=== PATIENT | female | born 1970 | race Caucasian/White ===

== ENCOUNTER 2016-07-25 22:27 | Emergency (ER) | payer SELFPAY ==
[~2016-07-25] VITALS: Ht 162.6 cm; Wt 100.0 kg
[~2016-07-25 22:27] MED LIST: GABA300 PO; LITH300C2 PO; SERO200T PO; TRAZ100 PO; WELL150T PO
[2016-07-25 23:00] VITALS: BP 124/86; PULSE 80; RESP 16; TEMP 98.7; O2SAT 100
[2016-07-25] MEDS ORDERED: SODIUM CHLORIDE 0.9% FLUSH 5 ML FLUSH IVF PRN (23:15)
[2016-07-25] MEDS ORDERED: ASPIRIN 81 MG CHEW TAB PO ONE (23:15)
--- NOTE | 2016-07-25 23:16 | PD ---
HPI Chief Complaint: Quintero act, Dizziness. Time Seen by Provider: 23:01 Travel History International Travel<30 days: No Contact w/Intl Traveler<30days: No Traveled to known affect area: No History of Present Illness HPI Patient is a 46 year old female presenting with dizziness and headache. Significant past medical history includes bipolar, depression, and PTSD. She states that she has been feeling very depressed again and having thoughts about killing herself by slicing her wrists. She has been quintero acted by chief digital media officer for for suicidal ideations but denies making any attempt, although admits to ingesting cocaine 3 hours ago. She denies chest pain, or shortness of breath at the moment but states that she experiences shortness of breath and chest tightness with physical exertion. Patient denies any visual changes, slurred speech, or neurological symptoms. She currently takes lithium, trazodone , and gabapentin, all prescribes to her by her psychiatrist at [facility] , and reports being compliant with her medications. History Past Medical History : 6 Para: 4 Social History Alcohol Use: No Tobacco Use: Yes (/2 PPD) Allergies-Medications (Allergen,Severity, Reaction): Coded Allergies: Penicillin (Verified Allergy, Severe, Nausea/Vomiting, 05/11/16) Reported Meds & Prescriptions Reported Meds & Active Scripts Active Reported Wellbutrin SR 12 HR (Bupropion HCl) 150 Mg Tab 150 Mg PO Q12HR Trazodone (Trazodone HCl) 100 Mg Tab 100 Mg PO HS Seroquel XR (Quetiapine Fumarate) 200 Mg Tab 200 Mg PO DAILY Gabapentin 600 Mg Tab 600 Mg PO BID [place] Carbonate 300 Mg Tab 300 Mg PO TID Review of Systems Except as stated in HPI: all other systems reviewed are Neg Physical Exam Narrative GENERAL: wellgroomed, well developed but obese female, appears anxious SKIN: Warm and dry. HEAD: Atraumatic. Normocephalic. EYES: Pupils equal and round. No scleral icterus. No injection or drainage. ENT: No nasal bleeding or discharge. Mucous membranes pink and moist. NECK: Trachea midline. No JVD. CARDIOVASCULAR: Regular rate and rhythm. RESPIRATORY: No accessory muscle use. Clear to auscultation. Breath sounds equal bilaterally. GASTROINTESTINAL: Abdomen soft, non-tender, nondistended. Hepatic and splenic margins not palpable. MUSCULOSKELETAL: Extremities without clubbing, cyanosis, or edema. No obvious deformities. NEUROLOGICAL: Awake and alert. No obvious cranial nerve deficits. Motor grossly within normal limits. Five out of 5 muscle strength in the arms and legs. Normal speech. PSYCHIATRIC: Appropriate mood and affect; insight and judgment normal. Endorses SI with planning. Data Data Last Documented VS Vital Signs Date Time Temp Pulse Resp B/P Pulse Ox O2 Delivery O2 Flow Rate FiO2 07/26/16 01:52 85 18 110/72 97 Room Air 07/25/16 23:00 98.7 Orders Electrocardiogram (07/25/16 23:02) Basic Metabolic Panel (Bmp) (07/25/16 23:02) Ckmb (Isoenzyme) Profile (07/25/16 23:02) Complete Blood Count With Diff (07/25/16 23:02) Magnesium (Mg) (07/25/16 23:02) Prothrombin Time / Inr (Pt) (07/25/16 23:02) [place] Partial Throm Time (Ptt) (07/25/16 23:02) Troponin I (07/25/16 23:02) Chest, Single Ap (07/25/16 23:02) Ecg Monitoring (07/25/16 23:02) Bilateral Bp Monitoring (07/25/16 23:02) Iv Access Insert/Monitor (07/25/16 23:02) Oximetry (07/25/16 23:02) Oxygen Administration (07/25/16 23:02) Aspirin Chew (Aspirin Chew) (07/25/16 23:15) Sodium Chloride 0.9% Flush (Ns Flush) (07/25/16 23:15) Drug Screen, Random Urine (07/25/16 23:02) Alcohol (Ethanol) (07/25/16 23:02) Psych Screen (07/25/16 23:02) [place] (Li) (07/25/16 23:05) Lorazepam Inj (Ativan Inj) (07/26/16 00:15) Labs Laboratory Tests Test 07/25/16 23:00 White Blood Count 10.7 TH/MM3 Red Blood Count 4.85 MIL/MM3 Hemoglobin 14.0 GM/DL Hematocrit 40.9 % Mean Corpuscular Volume 84.3 FL Mean Corpuscular Hemoglobin 28.8 PG Mean Corpuscular Hemoglobin 34.1 % Concent Red Cell Distribution Width 13.1 % Platelet Count 211 TH/MM3 Mean Platelet Volume 8.8 FL Neutrophils (%) (Auto) 73.0 % Lymphocytes (%) (Auto) 19.7 % Monocytes (%) (Auto) 4.2 % Eosinophils (%) (Auto) 2.7 % Basophils (%) (Auto) 0.4 % Neutrophils # (Auto) 7.8 TH/MM3 Lymphocytes # (Auto) 2.1 TH/MM3 Monocytes # (Auto) 0.4 TH/MM3 Eosinophils # (Auto) 0.3 TH/MM3 Basophils # (Auto) 0.0 TH/MM3 CBC Comment DIFF FINAL Differential Comment Prothrombin Time 10.6 SEC Prothromb Time International 1.0 RATIO Ratio Activated Partial 24.9 SEC Thromboplast Time Sodium Level 140 MEQ/L Potassium Level 3.5 MEQ/L Chloride Level 103 MEQ/L Carbon Dioxide Level 28.8 MEQ/L Anion Gap 8 MEQ/L Blood Urea Nitrogen 14 MG/DL Creatinine 1.09 MG/DL Estimat Glomerular Filtration 54 ML/MIN Rate Random Glucose 173 MG/DL Calcium Level 8.5 MG/DL Magnesium Level 2.0 MG/DL Total Creatine Kinase 55 U/L Troponin I LESS THAN 0.02 NG/ML Urine Opiates Screen NEG Urine Barbiturates Screen NEG Urine Amphetamines Screen NEG Urine Benzodiazepines Screen NEG Urine Cocaine Screen POS Urine Cannabinoids Screen NEG Ethyl Alcohol Level LESS THAN 3 MG/DL [place] Level MEQ/L MDM Medical Decision Making Medical Screen Exam Complete: Yes Emergency Medical Condition: Yes Medical Record Reviewed: Yes Differential Diagnosis Anxiety cocaine intoxication myocardial infarction highly unlikely Depression Poor social circumstance Adjustment disorder. [place] toxicity. Narrative Course Patient roomed in ED, appears well in NAD. Labs reassuring. EKG negative. Medically stable for psychiatric disposition. Dizziness is likely a component of vertigo by history (she states worse when she moves her head). Cerebellar testing negative. Discussed needs to follow this outpatient. Diagnosis Primary Impression: Adjustment disorder with mixed disturbance of emotions and conduct Condition: Stable Jin Stark MD Jul 25, 2016 23:16
[2016-07-25 23:17] LABS: AUTOMATED NEUTROPHIL # 7.8 TH/MM3 (1.8-7.7); BASOPHIL % 0.4 % (0.0-2.0); EOSINOPHIL # 0.3 TH/MM3 (0-0.4); EOSINOPHIL % 2.7 % (0.0-4.0); HEMATOCRIT 40.9 % (35.0-46.0); HEMO FLAGS DIFF FINAL; LYMPH % 19.7 % (9.0-44.0); LYMPHOCYTE # 2.1 TH/MM3 (1.0-4.8); MEAN CELL VOLUME 84.3 FL (80.0-100.0); MEAN CORPUSCULAR HEMOGLOBIN 28.8 PG (27.0-34.0); MEAN CORPUSCULAR HGB CONC 34.1 % (32.0-36.0); MONO % 4.2 % (0.0-8.0); PLATELET COUNT 211 TH/MM3 (150-450); RED BLOOD COUNT 4.85 MIL/MM3 (4.00-5.30); RED CELL DISTRIBUTION WIDTH 13.1 % (11.6-17.2); WHITE BLOOD COUNT 10.7 TH/MM3 (4.0-11.0)
[2016-07-25 23:27] LABS: AMPHETAMINE, URINE NEG (NEG); APTT (PATIENT) 24.9 SEC (24.3-30.1); BARBITURATES, URINE NEG (NEG); COCAINE, URINE POS (NEG); PROTHROMBIN TIME - PATIENT 10.6 SEC (9.8-11.6)
[2016-07-25 23:30] VITALS: BP 125/87; PULSE 82
[2016-07-25 23:36] LABS: ANION GAP 8 MEQ/L (5-15)
[2016-07-25 23:41] LABS: BICARBONATE 28.8 MEQ/L (21.0-32.0); BLOOD UREA NITROGEN 14 MG/DL (7-18); CHLORIDE 103 MEQ/L (98-107); GLOMERULAR FILTRATION RATE 54 ML/MIN (>89); POTASSIUM 3.5 MEQ/L (3.5-5.1); SODIUM (NA) 140 MEQ/L (136-145)
[2016-07-25 23:48] LABS: CREATINE KINASE 55 U/L (26-192)
--- NOTE | 2016-07-25 23:54 | RADRPT ---
EXAM DATE/TIME: 07/25/2016 23:05 [facility] COMPARISON: CHEST SINGLE AP, February 09, 2016, 21:00. INDICATIONS : Chest pain and syncope. MEDICAL HISTORY : None. SURGICAL HISTORY : None. ENCOUNTER: Initial ACUITY: 1 week PAIN SCORE: 6/10 LOCATION: Bilateral chest FINDINGS: A single view of the chest demonstrates the lungs to be symmetrically aerated without evidence of mas s, infiltrate or effusion. The cardiomediastinal contours are unremarkable. Osseous structures are intact. CONCLUSION: No acute disease. Jose Cortez MD on July 25, 2016 at 23:52 Board Certified Radiologist. This report was verified electronically.
[2016-07-26] MEDS ORDERED: LORazepam 2 MG/ML VIAL IV PUSH ONE (00:15)
[2016-07-26 01:52] VITALS: BP 110/72; PULSE 85; RESP 18; O2SAT 97
[2016-07-26] MEDS ORDERED: TRAZ100T4 PO (02:23)
[2016-07-26] MEDS ORDERED: GABA600T PO (02:23)
[2016-07-26] MEDS ORDERED: LITH300T3 PO (02:23)
[2016-07-26] MEDS ORDERED: BUPR150CR PO (02:23)
[2016-07-26] MEDS ORDERED: QUET200XR PO (02:23)
[2016-07-26 06:30] VITALS: BP 153/87; PULSE 72; RESP 18; TEMP 99; O2SAT 98
[2016-07-26] MEDS ORDERED: ACETAMINOPHEN 325 MG TAB PO ONE ×2 (09:30→13:00)
[2016-07-26 10:34] VITALS: BP 130/63; PULSE 74; RESP 18; O2SAT 97
[2016-07-26 14:40] VITALS: BP 145/70; PULSE 66; RESP 18; TEMP 97.1; O2SAT 97
[2016-07-26] MEDS ORDERED: LORazepam 1 MG TAB PO ONE (17:30)
[2016-07-26] MEDS ORDERED: IBUPROFEN 800 MG TAB PO ONE (18:00)
[2016-07-26 18:12] VITALS: BP 142/70; PULSE 63; RESP 18; O2SAT 98
--- NOTE | 2016-07-26 18:33 | MB ---
cc: SHUN HODGE MD DATE OF CONSULTATION: 07/26/2016 REFERRING PHYSICIAN: Emergency department. REASON FOR CONSULTATION [employer] HISTORY OF PRESENT ILLNESS Ms. Darden is a 46-year-old female with a reported history of bipolar disorder and PTSD who presents on a Quintero Act from [facility] Department alleging that she told the officer that she and her were recently and her water and electric was shut off. She has started doing drugs again and wants to kill herself. Reviewing the electronic medical record, I see the patient was seen in consultation by nurse practitioner, Ricky, in the ED back in March of 2016 at which time the Service Route Act was lifted and she was discharged home. She was admitted most recently under Dr. Santo in February of last year. The patient seen and examined. Chart reviewed. Case discussed with nurse in the J pod. On my examination today, the patient says "I have no food. I have no electric. I feel so fucking worthless. It is easier just to kill myself than to deal with it. I would slice my wrists or hang myself. I don't see any way out. I am so hopeless and alone." Mood is intensely dysphoric. The patient is quite anxious and psychomotor agitated. I have ordered her medication with Ativan by mouth once for anxiety. She endorses deprecatory auditory hallucinations saying, "you are piece of shit and it is no wonder that your left you." She says that she has been nonadherent with her medications. It is her preference to go to [facility] where she typically receives outpatient and inpatient psychiatric services. PAST PSYCHIATRIC HISTORY The patient reports prior diagnosis of bipolar disorder and PTSD. She follows with nurse practitioner, ERMELINDA, at [facility]. Her most recent psychiatric admission was here under Dr. Santo but as I said she typically goes to [facility] she tells me. She endorses multiple prior suicide attempts including overdoses on pills, cutting her wrists, walking on the train tracks. FAMILY HISTORY The patient denies any family history of mental illness. CHEMICAL DEPENDENCY HISTORY: The patient reports relapse to crack cocaine. Her last use was yesterday. She denies any other substance use. SOCIAL HISTORY The patient reports that she has housing but does not have water or electric. Her left her reportedly. She has four children all grown. She lost her job about a week ago because she can't shower and appear presentable at work. She denies any or legal history. Denies any access to guns or firearms. PAST MEDICAL HISTORY The patient denies any history of medical illness. REVIEW OF SYSTEMS The patient complains of some dental pain but has no complaints of headache, vision or hearing changes, chest pain, shortness of breath, bowel or bladder issues. No other physical complaints. PHYSICAL EXAMINATION Vital signs: Temperature is 97.1, pulse is 66, respirations 18, blood pressure 145/70, pulse ox 97% on room air. A physical examination was completed in the emergency room by the ER staff and the patient was medically cleared. On my examination today, the patient appears to be in moderate acute physical distress due to dental pain. No abnormal motor movements noted. No signs of withdrawal noted. LABORATORY: Reviewed. CBC is unremarkable. CMP is significant for decreased GFR at 54 and random glucose of 173. CK is not elevated. Toxicology is positive for cocaine as I said. MENTAL STATUS EXAMINATION: The patient is in hospital gown. She is fairly well-groomed and certainly maintaining basic hygiene. She is awake and alert and oriented x3. No abnormal motor movements noted. Speech is within normal limits for rate, tone and volume. Language and fund of knowledge seem average for age. Mood is depressed and affect is intensely dysphoric. Thought process linear. No loosening of associations. No evident delusions. Deprecatory auditory hallucinations. No other hallucinatory material. Endorses ongoing suicidal ideation with multiple plans. Only halfheartedly contracts for safety in the ED. No homicidal ideation. Insight and judgment are poor presently. ASSESSMENT/PLAN 1. Cocaine dependence with cocaine induced mood disorder, F14.24. This is a 46-year-old female with psychiatric history as detailed above who presents under Quintero Act alleging suicidal statements. On my examination today, the patient appears to be intensely dysphoric and suicidal. She endorses recent cocaine use. The patient requires psychiatric hospitalization at this time for safety, observation and stabilization. I will retain the patient under the Quintero Act and plan to transfer the patient to [facility] once a bed becomes available. Case discussed with nurse in the J pod. Thank you very much for this consultation. Shun CUI /5:22 PM /5:37 PM [email or web address]
--- NOTE | 2016-07-26 20:04 | EKG ---
Date Performed: 07/25/2016 Time Performed: 22:50:18 PTAGE: 46 years EKG: Sinus rhythm NONSPECIFIC T-WAVE ABNORMALITY ABNORMAL ECG PREVIOUS TRACING : 02/09/2016 20.55 Compared to prior tracing no significant change DOCTOR: Milton Taylor Interpretating Date/Time 07/26/2016 20:02:35
== END 2016-07-26 21:14 ==
LOC: NEPA 22:27 → NEPJ 07-26 21:14
DX: R42 Dizziness and giddiness (principal); F43.25 Adjustment disorder with mixed disturbance of emotions and conduct; F14.94 Cocaine use, unspecified with cocaine-induced mood disorder; F31.9 Bipolar disorder, unspecified; F43.10 Post-traumatic stress disorder, unspecified; R94.31 Abnormal electrocardiogram [ECG] [EKG]; R55 Syncope and collapse; R07.9 Chest pain, unspecified; F17.210 Nicotine dependence, cigarettes, uncomplicated
CPT/HCPCS: 71010; 80048; 80178; 80307; 80320; 82550; 83735; 84484; 85025; 85610; 85730; 93005

== ENCOUNTER 2016-08-12 22:23 | Inpatient (IN) | payer OTHER ==
[~2016-08-12] VITALS: Ht 160 cm; Wt 81.6 kg
[~2016-08-12 22:23] MED LIST changes: +BUPR150CR PO; -GABA300 PO; +GABA600T PO; -LITH300C2 PO; +LITH300T3 PO; +QUET200XR PO; -SERO200T PO; -TRAZ100 PO; +TRAZ100T4 PO; -WELL150T PO
[2016-08-12 22:36] VITALS: BP 115/84; PULSE 85; RESP 18; TEMP 98.1
--- NOTE | 2016-08-12 22:59 | PD ---
HPI Chief Complaint: Psychiatric Symptoms Time Seen by Provider: 22:52 Travel History International Travel<30 days: No Contact w/Intl Traveler<30days: No Traveled to known affect area: No History of Present Illness HPI 46-year-old female presents to the emergency room under a Quintero act for evaluation of suicidal ideation. Patient called the police stating that she wanted to harm herself by running out in front of traffic. Patient states she is suicidal because she is on drugs. States she has been attempting to detox from drugs for a long time and can no longer take it. She admits to using crack cocaine, drinking alcohol, and taking opiate pain medications. Last smoked crack and drink beer one hour prior to arrival. She denies hallucinations or delusions. Reports she has been out of her medications including Wellbutrin, gabapentin, lithium, and trazodone for a few days. Medical complaint includes dental pain of the right upper tooth that has been ongoing. She denies any dental drainage, fever, chills. PFSH Past Medical History Asthma: No Bipolar Disorder: Yes Anxiety: Yes (PTSD) Depression: Yes Heart Rhythm Problems: No High Cholesterol: Yes Chest Pain: Yes COPD: No Diminished Hearing: No Endocrine: No Gastrointestinal Disorders: Yes (ESOPHAGEAL SPASMS) GERD: Yes Genitourinary: No Hepatitis: Yes (HEP C) Hypertension: Yes Immune Disorder: No Musculoskeletal: No Neurologic: No Respiratory: Yes Immunizations Current: Yes Sleep Apnea: Yes (NO CPAP) ?: Not : 6 Para: 4 Miscarriage: 1 : 1 Ovarian Cysts: Yes Tubal Ligation: Yes Past Surgical History Cholecystectomy: Yes Other Surgery: Yes (gallbladder) Social History Alcohol Use: No Tobacco Use: Yes (/2 PPD) Substance Use: Yes (ALCOHOL, COCAINE) Allergies-Medications (Allergen,Severity, Reaction): Coded Allergies: Penicillin (Verified Allergy, Severe, Nausea/Vomiting, 08/12/16) Reported Meds & Prescriptions Reported Meds & Active Scripts Active Reported Wellbutrin SR 12 HR (Bupropion HCl) 150 Mg Tab 150 Mg PO Q12HR Trazodone (Trazodone HCl) 100 Mg Tab 100 Mg PO HS Seroquel XR (Quetiapine Fumarate) 200 Mg Tab 200 Mg PO DAILY Gabapentin 600 Mg Tab 600 Mg PO BID [place] Carbonate 300 Mg Tab 300 Mg PO BID Review of Systems Except as stated in HPI: all other systems reviewed are Neg Physical Exam Narrative GENERAL: Well-nourished, morbidly obese female in no acute distress. Afebrile. Ambulatory. SKIN: Warm and dry. HEAD: Normocephalic. EYES: No scleral icterus. No injection or drainage. NECK: Supple, trachea midline. No JVD or lymphadenopathy. CARDIOVASCULAR: Regular rate and rhythm without murmurs, gallops, or rubs. RESPIRATORY: Breath sounds equal bilaterally. No accessory muscle use. PSYCHIATRIC: No delusional thought processes. No hallucinations. Crying. Data Data Last Documented VS Vital Signs Date Time Temp Pulse Resp B/P Pulse Ox O2 Delivery O2 Flow Rate FiO2 08/13/16 13:01 96.7 71 18 136/89 95 08/13/16 12:32 Room Air Orders Complete Blood Count With Diff (08/12/16 22:51) Basic Metabolic Panel (Bmp) (08/12/16 22:51) Drug Screen, Random Urine (08/12/16 22:51) Alcohol (Ethanol) (08/12/16 22:51) Psych Screen (08/12/16 22:51) Ibuprofen (Motrin) (08/12/16 23:00) [place] (Li) (08/12/16 23:54) Acetaminophen (Tylenol) (08/13/16 06:30) Admit Order (Ed Use Only) (08/13/16 14:47) Labs Laboratory Tests Test 08/12/16 08/12/16 08/13/16 23:00 23:30 00:20 White Blood Count 11.8 TH/MM3 Red Blood Count 5.00 MIL/MM3 Hemoglobin 14.3 GM/DL Hematocrit 41.4 % Mean Corpuscular Volume 82.7 FL Mean Corpuscular Hemoglobin 28.6 PG Mean Corpuscular Hemoglobin 34.5 % Concent Red Cell Distribution Width 13.4 % Platelet Count 248 TH/MM3 Mean Platelet Volume 8.5 FL Neutrophils (%) (Auto) 70.5 % Lymphocytes (%) (Auto) 21.7 % Monocytes (%) (Auto) 5.1 % Eosinophils (%) (Auto) 1.8 % Basophils (%) (Auto) 0.9 % Neutrophils # (Auto) 8.3 TH/MM3 Lymphocytes # (Auto) 2.6 TH/MM3 Monocytes # (Auto) 0.6 TH/MM3 Eosinophils # (Auto) 0.2 TH/MM3 Basophils # (Auto) 0.1 TH/MM3 CBC Comment DIFF FINAL Differential Comment Sodium Level 141 MEQ/L Potassium Level 3.5 MEQ/L Chloride Level 107 MEQ/L Carbon Dioxide Level 25.7 MEQ/L Anion Gap 8 MEQ/L Blood Urea Nitrogen 11 MG/DL Creatinine 1.00 MG/DL Estimat Glomerular Filtration 59 ML/MIN Rate Random Glucose 105 MG/DL Calcium Level 8.9 MG/DL Ethyl Alcohol Level LESS THAN 3 MG/DL Urine Opiates Screen NEG Urine Barbiturates Screen NEG Urine Amphetamines Screen NEG Urine Benzodiazepines Screen NEG Urine Cocaine Screen POS Urine Cannabinoids Screen NEG [place] Level LESS THAN 0.1 MEQ/L MDM Medical Decision Making Medical Screen Exam Complete: Yes Emergency Medical Condition: Yes Medical Record Reviewed: Yes Differential Diagnosis Adjustment disorder versus bipolar disorder versus cocaine abuse versus schizophrenia Narrative Course 46-year-old female presents to the emergency room her [place] Quintero act for evaluation of suicidal ideation. She was here 2 weeks ago for the same and spent 3 days at [facility]. Patient called police department stating that she wanted to harm herself by jumping in front of traffic because she cannot longer take being addicted to drugs. Last smoked crack cocaine one hour prior to arrival. Patient denies any medical complaints other than dental pain. She is given 800 mg ibuprofen for pain. CBC, BMP, drug screen, and alcohol levels ordered and pending. Patient signed out tonight and provider. Condition: Stable Chitra Goode Aug 12, 2016 22:59
[2016-08-12] MEDS ORDERED: IBUPROFEN 800 MG TAB PO ONE (23:00)
[2016-08-12 23:16] LABS: AUTOMATED NEUTROPHIL # 8.3 TH/MM3 (1.8-7.7); BASOPHIL # 0.1 TH/MM3 (0-0.2); BASOPHIL % 0.9 % (0.0-2.0); EOSINOPHIL # 0.2 TH/MM3 (0-0.4); EOSINOPHIL % 1.8 % (0.0-4.0); HEMATOCRIT 41.4 % (35.0-46.0); HEMO FLAGS DIFF FINAL; LYMPH % 21.7 % (9.0-44.0); LYMPHOCYTE # 2.6 TH/MM3 (1.0-4.8); MEAN CELL VOLUME 82.7 FL (80.0-100.0); MEAN CORPUSCULAR HEMOGLOBIN 28.6 PG (27.0-34.0); MEAN CORPUSCULAR HGB CONC 34.5 % (32.0-36.0); MONO % 5.1 % (0.0-8.0); NEUT % 70.5 % (16.0-70.0); PLATELET COUNT 248 TH/MM3 (150-450); RED CELL DISTRIBUTION WIDTH 13.4 % (11.6-17.2); WHITE BLOOD COUNT 11.8 TH/MM3 (4.0-11.0)
[2016-08-12 23:47] LABS: ANION GAP 8 MEQ/L (5-15); BICARBONATE 25.7 MEQ/L (21.0-32.0); BLOOD UREA NITROGEN 11 MG/DL (7-18); CHLORIDE 107 MEQ/L (98-107); GLOMERULAR FILTRATION RATE 59 ML/MIN (>89); POTASSIUM 3.5 MEQ/L (3.5-5.1); SODIUM (NA) 141 MEQ/L (136-145)
[2016-08-12 23:57] LABS: AMPHETAMINE, URINE NEG (NEG); BARBITURATES, URINE NEG (NEG); COCAINE, URINE POS (NEG)
--- NOTE | 2016-08-13 02:19 | PD ---
Physical Exam Date Seen by Provider: Aug 13, 2016 Time Seen by Provider: 02:18 Data Data Last Documented VS Vital Signs Date Time Temp Pulse Resp B/P Pulse Ox O2 Delivery O2 Flow Rate FiO2 08/13/16 00:30 18 08/12/16 22:36 98.1 85 115/84 Orders Complete Blood Count With Diff (08/12/16 22:51) Basic Metabolic Panel (Bmp) (08/12/16 22:51) Drug Screen, Random Urine (08/12/16 22:51) Alcohol (Ethanol) (08/12/16 22:51) Psych Screen (08/12/16 22:51) Ibuprofen (Motrin) (08/12/16 23:00) [place] (Li) (08/12/16 23:54) Labs Laboratory Tests Test 08/12/16 08/12/16 08/13/16 23:00 23:30 00:20 White Blood Count 11.8 TH/MM3 Red Blood Count 5.00 MIL/MM3 Hemoglobin 14.3 GM/DL Hematocrit 41.4 % Mean Corpuscular Volume 82.7 FL Mean Corpuscular Hemoglobin 28.6 PG Mean Corpuscular Hemoglobin 34.5 % Concent Red Cell Distribution Width 13.4 % Platelet Count 248 TH/MM3 Mean Platelet Volume 8.5 FL Neutrophils (%) (Auto) 70.5 % Lymphocytes (%) (Auto) 21.7 % Monocytes (%) (Auto) 5.1 % Eosinophils (%) (Auto) 1.8 % Basophils (%) (Auto) 0.9 % Neutrophils # (Auto) 8.3 TH/MM3 Lymphocytes # (Auto) 2.6 TH/MM3 Monocytes # (Auto) 0.6 TH/MM3 Eosinophils # (Auto) 0.2 TH/MM3 Basophils # (Auto) 0.1 TH/MM3 CBC Comment DIFF FINAL Differential Comment Sodium Level 141 MEQ/L Potassium Level 3.5 MEQ/L Chloride Level 107 MEQ/L Carbon Dioxide Level 25.7 MEQ/L Anion Gap 8 MEQ/L Blood Urea Nitrogen 11 MG/DL Creatinine 1.00 MG/DL Estimat Glomerular Filtration 59 ML/MIN Rate Random Glucose 105 MG/DL Calcium Level 8.9 MG/DL Ethyl Alcohol Level LESS THAN 3 MG/DL Urine Opiates Screen NEG Urine Barbiturates Screen NEG Urine Amphetamines Screen NEG Urine Benzodiazepines Screen NEG Urine Cocaine Screen POS Urine Cannabinoids Screen NEG [place] Level LESS THAN 0.1 MEQ/L MDM Medical Record Reviewed: Yes Supervised Visit with JOLENE: Yes Interpretation(s) Laboratory Tests Test 08/12/16 08/12/16 08/13/16 23:00 23:30 00:20 White Blood Count 11.8 TH/MM3 Red Blood Count 5.00 MIL/MM3 Hemoglobin 14.3 GM/DL Hematocrit 41.4 % Mean Corpuscular Volume 82.7 FL Mean Corpuscular Hemoglobin 28.6 PG Mean Corpuscular Hemoglobin 34.5 % Concent Red Cell Distribution Width 13.4 % Platelet Count 248 TH/MM3 Mean Platelet Volume 8.5 FL Neutrophils (%) (Auto) 70.5 % Lymphocytes (%) (Auto) 21.7 % Monocytes (%) (Auto) 5.1 % Eosinophils (%) (Auto) 1.8 % Basophils (%) (Auto) 0.9 % Neutrophils # (Auto) 8.3 TH/MM3 Lymphocytes # (Auto) 2.6 TH/MM3 Monocytes # (Auto) 0.6 TH/MM3 Eosinophils # (Auto) 0.2 TH/MM3 Basophils # (Auto) 0.1 TH/MM3 CBC Comment DIFF FINAL Differential Comment Sodium Level 141 MEQ/L Potassium Level 3.5 MEQ/L Chloride Level 107 MEQ/L Carbon Dioxide Level 25.7 MEQ/L Anion Gap 8 MEQ/L Blood Urea Nitrogen 11 MG/DL Creatinine 1.00 MG/DL Estimat Glomerular Filtration 59 ML/MIN Rate Random Glucose 105 MG/DL Calcium Level 8.9 MG/DL Ethyl Alcohol Level LESS THAN 3 MG/DL Urine Opiates Screen NEG Urine Barbiturates Screen NEG Urine Amphetamines Screen NEG Urine Benzodiazepines Screen NEG Urine Cocaine Screen POS Urine Cannabinoids Screen NEG [place] Level LESS THAN 0.1 MEQ/L Differential Diagnosis MDM: High Differential diagnoses: Schizophrenia, schizoaffective disorder, bipolar, anxiety, depression, adjustment reaction, mood disorder NOS, ODD, depressive disorder NOS, dementia, dementia with agitation, psychosis NOS, substance induced mood disorder, intermittent explosive disorder, Asperger syndrome, infection,electrolyte abnormality, malingering. Narrative Course Mental health screening discussed with the patient. Psychiatric screen ordered. The patient has been medically cleared. This is substance induced mood disorder, PSA Diagnosis Primary Impression: Substance induced mood disorder Additional Impression: Polysubstance abuse Condition: Stable Tyrel Gan Aug 13, 2016 02:19
[2016-08-13] MEDS ORDERED: ACETAMINOPHEN 500 MG CPLT PO ONE (06:30)
[2016-08-13 12:32] VITALS: BP 140/94; PULSE 67; RESP 18; O2SAT 100
[2016-08-13 13:01] VITALS: BP 136/89; PULSE 71; RESP 18; TEMP 96.7; O2SAT 95
[2016-08-13] MEDS ORDERED: MAGNESIUM HYDROXIDE SUSP 30 ML CUP PO PRN (16:30)
[2016-08-13] MEDS ORDERED: ALUMINUM/MAGNESIUM/SIMETH 30 ML CUP PO PRN (16:30)
[2016-08-13] MEDS: REMOVE OLD NICOTINE PATCH T-DERMAL SCH (17:30)
[2016-08-13] MEDS: NICOTINE 21 MG/24 HR PATCH T-DERMAL SCH (17:30)
[2016-08-13] MEDS: hydrOXYzine HCL 50 MG TAB PO PRN ×2 (18:53→20:25)
[2016-08-13 19:25] VITALS: BP 161/95; PULSE 65; RESP 16; TEMP 97.8; O2SAT 97
[2016-08-13] MEDS: GABAPENTIN 300 MG CAP PO SCH (20:24)
[2016-08-13] MEDS: buPROPion HCL 150 MG SUSTAINED RELEASE TAB PO SCH (20:25)
[2016-08-13] MEDS: LITHIUM CARBONATE 300 MG CAP PO SCH (20:25)
[2016-08-13] MEDS: QUEtiapine FUMARATE 100 MG TAB PO SCH (20:25)
[2016-08-13] MEDS: ACETAMINOPHEN 325 MG TAB PO PRN (20:25)
[2016-08-13] MEDS ORDERED: traZODone HCL 100 MG TAB PO SCH (21:00)
[2016-08-14] MEDS ORDERED: LORazepam 1 MG TAB PO PRN (01:30)
[2016-08-14] MEDS ORDERED: LORazepam 2 MG/ML VIAL IV PUSH PRN ×4 (01:30)
[2016-08-14] MEDS ORDERED: LORazepam 2 MG TAB PO PRN (01:30)
[2016-08-14] MEDS ORDERED: FLUMAZENIL 0.5 MG/5 ML VIAL IV PUSH PRN (01:30)
[2016-08-14 05:18] VITALS: BP 125/81; PULSE 68; RESP 16; TEMP 97
[2016-08-14 07:48] LABS: HDL CHOLESTEROL 46.6 MG/DL (40.0-60.0); LDL CHOLESTEROL 86 MG/DL (0-99)
[2016-08-14] MEDS: QUEtiapine FUMARATE 100 MG TAB PO SCH (08:51)
[2016-08-14] MEDS: GABAPENTIN 300 MG CAP PO SCH ×2 (08:51→20:48)
[2016-08-14] MEDS: LITHIUM CARBONATE 300 MG CAP PO SCH (08:51)
[2016-08-14] MEDS: buPROPion HCL 150 MG SUSTAINED RELEASE TAB PO SCH ×2 (08:51→16:00)
[2016-08-14] MEDS: NICOTINE 21 MG/24 HR PATCH T-DERMAL SCH (09:00)
--- NOTE | 2016-08-14 10:35 | HHI.HP ---
Provisional Diagnosis Admission Date Aug 13, 2016 at 14:49 [place] I. Bipolar affective disorder depressed with suicidal ideation History of substance abuse cocaine Ringgold II. Passive-dependent trait Ringgold III. Please see the emergency room evaluation Ring[place] IV. Moderate stress difficulty coping and abstaining from substance abuse Ringgold V. GAF of 40-45 Certification of Person's Competence To Provide Express and Informed Consent I have personally examined Kristine Darden , a person being served at [facility] on, Aug 14, 2016 10:06. Express and informed consent means consent voluntarily given in writing, by a competent person, after sufficient explanation and disclosure of the subject matter involved to enable the person to make a knowing and willful decision without any element of force, fraud, deceit, duress, or other form of constraint or coercion. This person is 18 years of age or older, is not now known to be incompetent to consent to treatment with a guardian advocate, and does not have a health care surrogate or proxy currently making medical treatment decisions. I have found this person to be one of the following: [x] Competent to provide express and informed consent, as defined above, for voluntary admission to this facility and is competent to provide express and informed consent for treatment. He/she has the consistent capacity to make well reasoned, willful, and knowing decisions concerning his or her medical or mental health treatment. The person fully and consistently understands the purpose of the admission for examination/placement and is fully capable of personally exercising all rights assured [place] [] Incompetent to provide express and informed consent to voluntary admission, and this is incompetent to provide express and informed consent to treatment. The person must be transferred to involuntary status and a petition for a guardian advocate filed with the Circuit Court. [] Refusing to provide express and informed consent to voluntary admission but is competent to provide express and informed consent for treatment. The person must be discharged or transferred to involuntary status. Form shall be completed within 24 hours of a person's arrival at the receiving facility and filed in the clinical record of each person: 1. Admitted on a voluntary basis 2. Permitted to provide express and informed consent to his/her own treatment 3. Allowed to transfer from involuntary to voluntary status 4. Prior to permitting a person to consent to his or her own treatment after having been previously found incompetent to consent to treatment. History of Present Illness Capacity: Has Capacity HPI This is a 46-year-old white deaf female who was admitted under Quintero act because she told the police that she has a history of drug abuse feels depressed and wants some help she wanted to harm herself and carry out her active by running out in front of the traffic with an attempt to kill herself. She claimed that she has been abusing cocaine has been feeling depressed and going downhill and feeling suicidal. She has been from her for the last 4 years but she has been her life is going downhill. Patient has a history of bipolar affective disorder and posttraumatic stress disorder she is probably not compliant in taking medication on a regular basis. She also admitted to selling her body for food money and/or drugs she feels that she cannot make it on the street she will end up being and she wants some help. She denied any active auditory or visual hallucination at this time. She is willing to sign voluntary and cooperate with the treatment. Advised she is in the hospital she is not going to do to anything to harm herself Review of Systems Except as stated in HPI: all other systems reviewed are Neg Psychiatric: COMPLAINS OF: Mood changes, Depression Past Psych History Psychological trauma history Patient denied any physical verbal or sexual abuse growing up but she claimed that her family was dysfunctional and her father was an alcoholic so she had lot of trauma growing up Violence risk - others (6 mos) Patient denies Violence risk - self (6 mos) Patient does admit to feeling suicidal and jumping in front of the traffic and wants some help for her drug abuse Substance Abuse History Drugs/Alcohol past 12 months Admitted to cocaine abuse Past Family Social History Coded Allergies: Penicillin (Verified Allergy, Severe, Nausea/Vomiting, 08/12/16) Reported Medications Bupropion HCl ER 12 HR (Wellbutrin SR 12 HR)150 Mg [id number] Mg PO Q12HR 07/26/16 Trazodone 100 Mg [id number] Mg PO HS 07/26/16 Quetiapine XR (Seroquel XR)200 Mg [id number] Mg PO DAILY 07/26/16 Gabapentin 600 Mg [id number] Mg PO BID 07/26/16 Accident Carbonate 300 Mg [id number] Mg PO BID 07/26/16 Current Medications Medications (Trade) Dose Ordered Sig/Mateusz Route Start Time Stop Time Status Last Admin (Accident Carbonate) 300 mg BID PO 08/13/16 21:00 08/14/16 08:51 (Neurontin) 600 mg BID PO 08/13/16 21:00 08/14/16 08:51 (Desyrel) 100 mg HS PO 08/13/16 21:00 08/13/16 20:25 (SEROquel) 100 mg BID PO 08/13/16 21:00 08/14/16 08:51 (Wellbutrin Sr) 150 mg Q12HR PO 08/13/16 21:00 08/14/16 08:51 (Atarax) 50 mg Q6H PRN PO 08/13/16 16:30 08/13/16 20:25 (Tylenol) 650 mg Q4H PRN PO 08/13/16 16:30 08/13/16 20:25 (Milk Of Magnesia Liq) 30 ml DAILY PRN PO 08/13/16 16:30 (Mag-Al Plus Susp Liq) 30 ml Q6H PRN PO 08/13/16 16:30 (Habitrol 21 Mg Patch.24 Hr) 1 patch DAILY T-DERMAL 08/13/16 17:00 08/13/16 17:30 Miscellaneous Information 1 HS T-DERMAL 08/13/16 21:00 (Ativan) 1 mg Q4H PRN PO 08/14/16 01:30 (Ativan Inj) 1 mg Q4H PRN IV PUSH 08/14/16 01:30 (Ativan) 2 mg Q2H PRN PO 08/14/16 01:30 (Ativan Inj) 2 mg Q2H PRN IV PUSH 08/14/16 01:30 (Ativan Inj) 2 mg Q1H PRN IV PUSH 08/14/16 01:30 (Ativan Inj) 2 mg Q15M PRN IV PUSH 08/14/16 01:30 (Romazicon Inj) 0.2 mg Q1M PRN IV PUSH 08/14/16 01:30 Family History Positive for alcoholism and questionable mood swings Social History Patient was born in [place] she has 2 brothers. She is the middle child. Her parents she was close to her mom and dad. Her father was an alcoholic and she came from a dysfunctional family however she denied any physical verbal or sexual abuse growing up. She finished her high school and went to college for less than a year. And started to abuse her drugs especially cocaine. She has been for a year and her of sickle cell anemia. She has had one daughter who was adopted. Patient did get into trouble with the law couple of times because of the drugs. Since she is lonely and does not have much she has been abusing drugs and feeling depressed and now becoming more suicidal. Patient's Strengths (min. 2) Patient is willing to take the medication willing to abstain from any substance abuse and sign voluntary wants to go to a drug rehabilitation if possible Physical Exam Patient denied any physical complaints please see the emergency room evaluation she was medically cleared to be admitted here her vital signs are stable Vital Signs Vital Signs Date Time Temp Pulse Resp B/P Pulse Ox O2 Delivery O2 Flow Rate FiO2 08/14/16 05:18 97.0 68 16 125/81 08/13/16 19:25 97 08/13/16 12:32 Room Air I/O 08/13/16 08/13/16 08/14/16 08:00 16:00 00:00 Intake Total 700 ml Balance 700 ml Mental Status Examination This is a 46-year-old white to mildly overweight female who looks about the same as her stated age was alert ordered at 3 cooperative casually dressed. Her speech was slow without any evidence of loose associations or flights of ideas or pressure speech her mood was described as feeling depressed frustrated and hopeless. Her affect was sad and restricted. She feels safe in the hospital and denied any suicidal ideation or plan but she has been thinking about it prior to coming to the hospital. She denied any auditory or visual hallucinations or paranoid delusion at this time she seems to be of average intelligence with poor recent memory her insight is fair and her judgment seems to be okay on hypothetical situation her gait is normal fund of knowledge is average language is normal Previous Suicide Attempts: Yes Assessment & Plan Problem List: (1) Bipolar disorder ICD Code: F31.9 (2) Cocaine abuse ICD Code: F14.10 Assessment & Plan Estimated LOS:5 days. This is a 46-year-old white deaf female with a history of bipolar affective disorder depression and history of cocaine abuse. She Was admitted because she was feeling suicidal. She wants some help. We'll assess psych social worker to assist. Admit to observe evaluate and treat. Patient is willing to sign voluntary. Patient will participate in all the therapeutic activity on the floor. Vital signs every shift. Resume her medication. Side effect another alternative treatment were explained to the patient. Request psych social worker to assist in aftercare and discharge planning. Request HC Surrog/Guard Advoc?: No Codey Tate MD Aug 14, 2016 10:17
[2016-08-14] MEDS: ARIPiprazole 10 MG TAB PO SCH (11:58)
[2016-08-14] MEDS: ACETAMINOPHEN 325 MG TAB PO PRN (13:31)
[2016-08-14 13:34] LABS: HEMOGLOBIN A1a 0.6 %; HEMOGLOBIN A1b 1.4 %; HEMOGLOBIN Ao 87.1 %; HEMOGLOBIN LA1C 1.8 %; HEMOGLOBIN P3 3.5 %
--- NOTE | 2016-08-14 15:49 | PD.CONS ---
[facility] By [facility]iatry team Reason for Consult Medical management Primary Care Physician No Primary Care Physician Diagnoses: History of Present Illness Patient is a 46 year old female with primary medical history of GERD, hep C, anxiety, depression, PTSD who came in to the hospital under Quintero act for evaluation of suicidal ideation. As per note patient called the police stating that she wanted to harm herself by running out in front of traffic. Patient states she is suicidal because she is on drugs. She has been attempted to detox from drugs for some time and can no longer take it. She is now admitted to inpatient psychiatry unit for further evaluation. Consulted for medical management. Patient seen today. Very anxious. Denies being diagnosed with hypertension. Reports suicidal thoughts and cocaine use. Patient states that she uses CPAP machine at home. Further questioning, has not been using CPAP machine because she doesn't have any electricity at her house. She cannot remember the doctor issued her CPAP, she hasn't been following with any management liaison in the area, nor following a PCP in the area. Patient reports smoking half a pack per day, cocaine use, denies alcohol use but states she was drinking all night yesterday before getting admitted to the hospital. Otherwise, denies pain and discomfort. Denies SOB/ dyspnea. Denies chest pain, palpitations, headaches, dizziness. Denies fevers, chills, n/v/d. Review of Systems Other Negative except for what is noted on history of present illness. Past Family Social History Allergies: Coded Allergies: Penicillin (Verified Allergy, Severe, Nausea/Vomiting, 08/12/16) Past Medical History Anxiety PTSD Depression Hep C ARIA on CPAP at home As per record, HTN, HLD, esophageal spasms Past Surgical History Cholecystectomy Reported Medications Wellbutrin SR 12 HR (Bupropion HCl) 150 Mg Tab 150 Mg PO Q12HR Trazodone (Trazodone HCl) 100 Mg Tab 100 Mg PO HS Seroquel XR (Quetiapine Fumarate) 200 Mg Tab 200 Mg PO DAILY Gabapentin 600 Mg Tab 600 Mg PO BID [place] Carbonate 300 Mg Tab 300 Mg PO BID Active Ordered Medications Current Medications Medications (Trade) Dose Ordered Sig/Mateusz Route Start Time Stop Time Status Last Admin (Neurontin) 600 mg BID PO 08/13/16 21:00 08/14/16 08:51 (Atarax) 50 mg Q6H PRN PO 08/13/16 16:30 08/13/16 20:25 (Tylenol) 650 mg Q4H PRN PO 08/13/16 16:30 08/14/16 13:31 (Milk Of Magnesia Liq) 30 ml DAILY PRN PO 08/13/16 16:30 (Mag-Al Plus Susp Liq) 30 ml Q6H PRN PO 08/13/16 16:30 (Habitrol 21 Mg Patch.24 Hr) 1 patch DAILY T-DERMAL 08/13/16 17:00 08/13/16 17:30 Miscellaneous Information 1 HS T-DERMAL 08/13/16 21:00 (Ativan) 1 mg Q4H PRN PO 08/14/16 01:30 (Ativan Inj) 1 mg Q4H PRN IV PUSH 08/14/16 01:30 (Ativan) 2 mg Q2H PRN PO 08/14/16 01:30 (Ativan Inj) 2 mg Q2H PRN IV PUSH 08/14/16 01:30 (Ativan Inj) 2 mg Q1H PRN IV PUSH 08/14/16 01:30 (Ativan Inj) 2 mg Q15M PRN IV PUSH 08/14/16 01:30 (Romazicon Inj) 0.2 mg Q1M PRN IV PUSH 08/14/16 01:30 (Desyrel) 300 mg HS PO 08/14/16 21:00 (Abilify) 10 mg DAILY PO 08/14/16 10:30 08/14/16 11:58 (Wellbutrin Sr) 150 mg BID@08,16 PO 08/14/16 16:00 08/14/16 16:00 (Lithotabs) 300 mg BID@08,16 PO 08/14/16 16:00 08/14/16 16:00 Family History Mother of COPD Father of cancer Social History Denies alcohol use, but reports she has been drinking all night Tobacco use half a pack per day Substance use cocaine Physical Exam Vital Signs Vital Signs Date Time Temp Pulse Resp B/P Pulse Ox O2 Delivery O2 Flow Rate FiO2 08/14/16 05:18 97.0 68 16 125/81 08/13/16 19:25 97.8 65 16 161/95 97 Physical Exam GENERAL: This is an obese, well-developed patient, in no apparent distress. SKIN: No rashes, ecchymoses or lesions. Cool and dry. HEAD: Atraumatic. Normocephalic. No temporal or scalp tenderness. EYES: Pupils equal round and reactive. Extraocular motions intact. No scleral icterus. No injection or drainage. ENT: Nose without bleeding. Throat without erythema. Uvula midline. Airway patent. NECK: Trachea midline. No JVD or lymphadenopathy. Supple, nontender, no meningeal signs. CARDIOVASCULAR: Regular rate and rhythm without murmurs, gallops, or rubs. RESPIRATORY: Clear to auscultation. Breath sounds equal bilaterally. No wheezes , rales, or rhonchi. GASTROINTESTINAL: Abdomen soft, non-tender, nondistended. No guarding. Bowel sounds active 4. MUSCULOSKELETAL: Extremities without clubbing, cyanosis, or edema. No joint tenderness, effusion, or edema noted. No calf tenderness. Negative Homans sign bilaterally. NEUROLOGICAL: Awake and alert. Anxious. Motor and sensory grossly within normal limits. Pressured speech. Laboratory Laboratory Tests Test 08/14/16 06:52 Hemoglobin A1c 4.9 Triglycerides Level 167 Cholesterol Level 166 LDL Cholesterol 86 HDL Cholesterol 46.6 Cholesterol/HDL Ratio 3.56 Result Diagram: 08/12/16229908/12/162299 Assessment and Plan Problem List: (1) Hepatitis C ICD Code: B19.20 Status: Acute (2) Cocaine abuse ICD Code: F14.10 Status: Acute (3) Substance induced mood disorder ICD Code: F19.94 Status: Acute Assessment and Plan Patient is a 46-year-old female with history of polysubstance abuse who came in to the hospital under Quintero act secondary to suicidal ideations. Admitted to inpatient psychiatry unit for further management. Consulted for medical management. Substance-induced mood disorder, anxiety - managed by psychiatry team Polysubstance abuse - [facility] protocol - Monitor for withdrawals - Monitor labs. Follow-up results tomorrow. Hep C - patient unable to answer questions regarding hep C. We'll check liver enzymes. - May need to follow-up with gastroenterology as an outpatient for treatment. Tobacco abuse - counseled. Nicotine patch Labs reviewed. CBC with mild leukocytosis 11.8 possibly stress-induced, hemoglobin A1c 4.9, low EGFR at 59 with creatinine 1.0 possibly secondary to chronic polysubstance abuse. Will follow-up repeat labs. Thank you for this consultation. We will follow patient with you. Written by Yulia Lackey, acting as scribe for Dr. Chavez on 08/14/16 at 15:22. Code Status Full Code Discussed Condition With Patient, nursing The documentation accurately reflects the work performed [id number] by me, Dr. Chavez on 08/14/16 at 15:22. Yulia Cruz Aug 14, 2016 15:48 Severo Chavez MD Aug 25, 2016 12:57
[2016-08-14] MEDS: LITHIUM CARBONATE 300 MG TAB PO SCH (16:00)
[2016-08-14 18:55] VITALS: BP 135/79; PULSE 69; RESP 18; TEMP 98.5; O2SAT 96
[2016-08-14] MEDS: traZODone HCL 100 MG TAB PO SCH (20:47)
[2016-08-14] MEDS: REMOVE OLD NICOTINE PATCH T-DERMAL SCH (20:48)
[2016-08-15 06:14] VITALS: BP 112/61; PULSE 61; RESP 17; TEMP 97.9; O2SAT 94
[2016-08-15] MEDS: LITHIUM CARBONATE 300 MG TAB PO SCH ×2 (08:28→16:01)
[2016-08-15] MEDS: ARIPiprazole 10 MG TAB PO SCH (08:28)
[2016-08-15] MEDS: buPROPion HCL 150 MG SUSTAINED RELEASE TAB PO SCH ×2 (08:29→16:01)
[2016-08-15] MEDS: NICOTINE 21 MG/24 HR PATCH T-DERMAL SCH (08:29)
[2016-08-15] MEDS: GABAPENTIN 300 MG CAP PO SCH ×2 (08:29→20:13)
[2016-08-15 09:27] LABS: AUTOMATED NEUTROPHIL # 5.4 TH/MM3 (1.8-7.7); BASOPHIL % 0.4 % (0.0-2.0); EOSINOPHIL # 0.3 TH/MM3 (0-0.4); EOSINOPHIL % 3.7 % (0.0-4.0); HEMATOCRIT 39.9 % (35.0-46.0); HEMO FLAGS DIFF FINAL; LYMPH % 22.3 % (9.0-44.0); LYMPHOCYTE # 1.7 TH/MM3 (1.0-4.8); MEAN CELL VOLUME 83.7 FL (80.0-100.0); MEAN CORPUSCULAR HEMOGLOBIN 28.9 PG (27.0-34.0); MEAN CORPUSCULAR HGB CONC 34.5 % (32.0-36.0); MONO % 4.3 % (0.0-8.0); NEUT % 69.3 % (16.0-70.0); PLATELET COUNT 196 TH/MM3 (150-450); RED BLOOD COUNT 4.76 MIL/MM3 (4.00-5.30); RED CELL DISTRIBUTION WIDTH 13.8 % (11.6-17.2); WHITE BLOOD COUNT 7.8 TH/MM3 (4.0-11.0)
--- NOTE | 2016-08-15 14:39 | HHI.PYPN ---
Subjective Remarks Patient was seen and discussed with the clinical staff rn. Patient was feeling somewhat hopeful that she was accepted at the sober living in [place] and wanting to go there as soon as possible. enrollment services vice president are going to check an make arrangement so she can go tomorrow and start working as an outpatient. Patient wanted to go home first. No behavior or management problem reported. No side effects were complained. Patient denied any suicidal ideation intentions or plan. Patient denied any auditory or visual hallucinations. Continue with the same treatment Review of Systems Except as stated in HPI: all other systems reviewed are Neg Psychiatric: COMPLAINS OF: Mood changes, Depression Objective Alert: Yes Bandana: Person, Place, Date, Situation Mood: Depressed Affect: Restricted Memory Intact: Comment (not formerly tested but seems intact) Hallucinations: Other (patient denied any active auditory or visual hallucination at this time) Delusions: No Delusion Type: Other (no obvious delusional material at this time) Suicidal: Ideation (patient denied any suicidal ideation intentions or plan) Homicidal: Ideation Insight/Judgement Fair Labs Test 08/15/16 09:03 White Blood Count 7.8 TH/MM3 Red Blood Count 4.76 MIL/MM3 Hemoglobin 13.7 GM/DL Hematocrit 39.9 % Mean Corpuscular Volume 83.7 FL Mean Corpuscular Hemoglobin 28.9 PG Mean Corpuscular Hemoglobin 34.5 % Concent Red Cell Distribution Width 13.8 % Platelet Count 196 TH/MM3 Mean Platelet Volume 8.6 FL Neutrophils (%) (Auto) 69.3 % Lymphocytes (%) (Auto) 22.3 % Monocytes (%) (Auto) 4.3 % Eosinophils (%) (Auto) 3.7 % Basophils (%) (Auto) 0.4 % Neutrophils # (Auto) 5.4 TH/MM3 Lymphocytes # (Auto) 1.7 TH/MM3 Monocytes # (Auto) 0.3 TH/MM3 Eosinophils # (Auto) 0.3 TH/MM3 Basophils # (Auto) 0.0 TH/MM3 CBC Comment DIFF FINAL Differential Comment Vitals/IOs Vital Signs Date Time Temp Pulse Resp B/P Pulse Ox O2 Delivery O2 Flow Rate FiO2 08/15/16 06:14 97.9 61 17 112/61 94 08/13/16 12:32 Room Air Assessment & Plan Problem List: (1) Bipolar disorder ICD Code: F31.9 (2) Cocaine abuse ICD Code: F14.10 Assessment & Plan Estimated LOS: days Justification for Cont. Inpt. Monitoring other medication and risk of decompensation Request HC Surrog/Guard Advoc?: No Codey Tate MD Aug 15, 2016 14:39
--- NOTE | 2016-08-15 15:28 | HHI.DS ---
Psychiatry Discharge Summary Inpatient Psychiatric care?: Yes Advance Directive: No Reason Not Provided: none Mental Health AdvanceDirective: No Health Care Proxy: No Admission Admission Date Aug 13, 2016 at 14:49 Admission Diagnosis: (1) Bipolar disorder ICD Code: F31.9 (2) Cocaine abuse ICD Code: F14.10 GAF Score: 45 Brief History This is a 46-year-old white deaf female who was admitted under Quintero act because she told the police that she has a history of drug abuse feels depressed and wants some help she wanted to harm herself and carry out her active by running out in front of the traffic with an attempt to kill herself. She claimed that she has been abusing cocaine has been feeling depressed and going downhill and feeling suicidal. She has been from her for the last 4 years but she has been her life is going downhill. Patient has a history of bipolar affective disorder and posttraumatic stress disorder she is probably not compliant in taking medication on a regular basis. She also admitted to selling her body for food money and/or drugs she feels that she cannot make it on the street she will end up being and she wants some help. She denied any active auditory or visual hallucination at this time. She is willing to sign voluntary and cooperate with the treatment. Advised she is in the hospital she is not going to do to anything to harm herself Tobacco Use In Past 30 Days: 5 or More Cigarettes/Day Alcohol Use: Monthly or Less Hospital Course Patient was started on supportive treatment she persevered in some of the therapeutic activity on the floor. financial services auditor assisted her in finding an appropriate place patient was feeling hopeful about going to sober house living denied any suicidal ideation intentions or plan willing to abstain from any alcohol or cocaine abuse. And follow-up as an outpatient at that point arrangements were made for her to be discharged Results Blood Pressure 112 / 61 Vital Signs Date Time Temp Pulse Resp B/P Pulse Ox O2 Delivery O2 Flow Rate FiO2 08/15/16 06:14 97.9 61 17 112/61 94 08/13/16 12:32 Room Air Laboratory Tests Test 08/12/16 08/12/16 08/13/16 08/14/16 23:00 23:30 00:20 06:52 White Blood Count 11.8 TH/MM3 (4.0-11.0) Neutrophils (%) (Auto) 70.5 % (16.0-70.0) Neutrophils # (Auto) 8.3 TH/MM3 (1.8-7.7) Estimat Glomerular Filtration 59 ML/MIN (>89) Rate Urine Cocaine Screen POS (NEG) [place] Level LESS THAN 0.1 MEQ/L (0.5-1.5) Triglycerides Level 167 MG/DL (42-150) Laboratory Results Test 08/13/16 08/14/16 00:20 06:52 [place] Level LESS THAN 0.1 MEQ/L (0.5-1.5) Hemoglobin A1c 4.9 % (4.3-6.0) Triglycerides Level 167 MG/DL (42-150) Cholesterol Level 166 MG/DL (120-200) LDL Cholesterol 86 MG/DL (0-99) HDL Cholesterol 46.6 MG/DL (40.0-60.0) Summary of Major Lab Results Nothing significant Summary of Procedures None Imaging None Pending results at discharge: No Medications # of Antipsychotic meds at D/C: 1 Appropriate >1 Antipsych meds?: 2 Approp Antipsych med options 1 - Minimum of three failed multiple trials of monotherapy. Discharge Discharge Date: Aug 16, 2016 Discharge Diagnosis: (1) Bipolar disorder Diagnosis: Principal ICD Code: F31.9 (2) Cocaine abuse Diagnosis: Principal ICD Code: F14.10 Mental Status Exam at Disch Patient was alert oriented 3 cooperative casually dressed. Her speech was clear spontaneous without any evidence of loose associations or flights of ideas or pressure speech her mood was described as feeling hopeful about the future that she was accepted at [facility] and willing to abstain from any substance abuse and follow-up as an outpatient. Denied any auditory or visual hallucinations. Denied any suicidal ideation intentions or plan Pt Condition on Discharge: Stable Discharge Disposition: Discharge Home Discharge Instructions Diet Instructions: As Tolerated, No Restrictions Activities you can perform: Regular-No Restrictions Scheduled Appointment: Discharge Time <= 30 minutes Discharge/Advance Care Plan Health Problems: (1) Bipolar disorder (2) Cocaine abuse Goals to promote your health * To prevent worsening of your condition and complications * To maintain your health at the optimal level Directions to meet your goals Take your medications as prescribed Follow your dietary instruction Follow activity as directed Keep your appointments as scheduled Take your immunizations and boosters as scheduled If your symptoms worsen call your PCP, if no PCP go to Urgent Care Center or Emergency Room For 29/01 questions related to your inpatient stay or results of tests pending at discharge, please contact Dr. Codey Tate at Smoking is Dangerous to Your Health. Avoid second hand smoking Problem Qualifiers (1) Bipolar disorder: Codey Tate MD Aug 15, 2016 15:28
[2016-08-15] MEDS ORDERED: ARIP1TAB12 PO (15:35)
[2016-08-15] MEDS ORDERED: NEUR300C PO (15:35)
[2016-08-15] MEDS ORDERED: BUPR150CR PO (15:35)
[2016-08-15] MEDS ORDERED: LITH300T3 PO (15:35)
[2016-08-15] MEDS ORDERED: TRAZ50TA12 PO (15:35)
[2016-08-15 20:11] VITALS: BP 146/84; PULSE 68; RESP 18; TEMP 98.3; O2SAT 98
[2016-08-15] MEDS: traZODone HCL 100 MG TAB PO SCH (20:13)
[2016-08-15] MEDS: hydrOXYzine HCL 50 MG TAB PO PRN (20:13)
[2016-08-15] MEDS: REMOVE OLD NICOTINE PATCH T-DERMAL SCH (20:16)
[2016-08-16 05:45] VITALS: BP 133/64; PULSE 71; RESP 16; TEMP 98.8; O2SAT 95
[2016-08-16] MEDS: GABAPENTIN 300 MG CAP PO SCH (07:23)
[2016-08-16] MEDS: LITHIUM CARBONATE 300 MG TAB PO SCH (07:23)
[2016-08-16] MEDS: buPROPion HCL 150 MG SUSTAINED RELEASE TAB PO SCH (07:23)
[2016-08-16] MEDS: ARIPiprazole 10 MG TAB PO SCH (07:23)
== END 2016-08-16 08:30 | disposition home or self-care (01) | DRG 885 ==
LOC: NEPA 22:23 → NEDA 08-13 14:49 → H260 08-13 19:25
PROVIDERS: ADMIT Psychiatry & Neurology Psychiatry; ATTEND Psychiatry & Neurology Psychiatry
DX: F31.9 Bipolar disorder, unspecified (principal); R45.851 Suicidal ideations; Z91.14 Patient's other noncompliance with medication regimen; F14.10 Cocaine abuse, uncomplicated; F43.10 Post-traumatic stress disorder, unspecified; Z81.1 Family history of alcohol abuse and dependence; E66.3 Overweight; H91.90 Unspecified hearing loss, unspecified ear; K08.89 Other specified disorders of teeth and supporting structures; E78.00 Pure hypercholesterolemia, unspecified; B19.20 Unspecified viral hepatitis C without hepatic coma; I10 Essential (primary) hypertension; K21.9 Gastro-esophageal reflux disease without esophagitis; G47.33 Obstructive sleep apnea (adult) (pediatric); F17.210 Nicotine dependence, cigarettes, uncomplicated; E78.5 Hyperlipidemia, unspecified
CPT/HCPCS: 80048; 80061; 80178; 80307; 80320; 83036; 85025; 99284